=== PATIENT | male | born 1995 | race American Indian/Alaskan Native ===

== ENCOUNTER 2017-07-20 10:41 | Emergency (ER) | payer SELFPAY ==
[2017-07-20 11:49] VITALS: BP 124/72
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
== END 2017-07-20 14:44 | disposition home or self-care (01) ==
LOC: ED 10:41
DX: L73.9 Follicular disorder, unspecified (principal); R21 Rash and other nonspecific skin eruption; F17.200 Nicotine dependence, unspecified, uncomplicated; F12.10 Cannabis abuse, uncomplicated
CPT/HCPCS: 99282

== ENCOUNTER 2019-10-06 07:45 | Emergency (ER) | payer OTHER ==
[2019-10-06] MEDS ORDERED: TETANUS,DIPH,PERTUSS(ACELL) VACCINE 0.5 ML SYRINGE IM ONE (08:18)
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
[2019-10-06 09:24] LABS: Basophils % (Auto) 0.3 % (0.0-1.8); Eosinophils % (Auto) 0.5 % (0.0-4.3); Hematocrit 43.3 % (35.5-45.6); Hemoglobin 14.6 gm/dl (11.8-15.2); Lymphocytes # (Auto) 0.9 K/mm3 (1.2-5.4); Lymphocytes % (Auto) 15.7 % (13.4-35.0); Mean Corpuscular HGB Conc 34 % (32-34); Mean Corpuscular Volume 92 fl (84-94); Monocytes # (Auto) 0.5 K/mm3 (0.0-0.8); Monocytes % (Auto) 9.4 % (0.0-7.3); Platelet Count 175 K/mm3 (140-440); Red Blood Count 4.69 M/mm3 (3.65-5.03)
[2019-10-06 09:44] LABS: BUN/Creatinine Ratio 9; Blood Urea Nitrogen 10 mg/dL (9-20); Calcium 9.8 mg/dL (8.4-10.2); Hemolysis Index 6
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
[2019-10-06] MEDS ORDERED: ONDANSETRON 4 MG/2 ML INJ IV ONE (10:00)
[2019-10-06] MEDS ORDERED: fentaNYL 100 MCG/2 ML INJ IV ONE (10:00)
[2019-10-06] MEDS ORDERED: LIDOCAINE 1%/EPINEPHRINE 1:100,000 VIAL (20 ML) INFILTRATI ONE (10:07)
[2019-10-06] MEDS ORDERED: SODIUM CHLORIDE 0.9% IRR 500 ML BOTTLE IR ONE (10:07)
[2019-10-06] MEDS ORDERED: LIDOCAINE (1%) 10 MG/1 ML VIAL 20 ML MDV INFILTRATI ONE (10:07)
[2019-10-06] MEDS ORDERED: SODIUM CHLORIDE IRRI 500 ML 500 ML IR ONE (10:08)
[2019-10-06] MEDS: ceFAZolin/NS 1 GM/50 ML 1 GM/50 ML BAG IV ONE ×2 (11:16→11:17)
[2019-10-06 12:02] VITALS: BP 121/47
== END 2019-10-06 12:24 | disposition home or self-care (01) ==
LOC: ED 07:45
DX: S31.030A Puncture wound without foreign body of lower back and pelvis without penetration into retroperitoneum, initial encounter (principal); F17.200 Nicotine dependence, unspecified, uncomplicated; F12.10 Cannabis abuse, uncomplicated; Z79.1 Long term (current) use of non-steroidal anti-inflammatories (NSAID); Z79.899 Other long term (current) drug therapy; W03.XXXA Other fall on same level due to collision with another person, initial encounter; Y93.01 Activity, walking, marching and hiking; Y92.89 Other specified places as the place of occurrence of the external cause; Y99.8 Other external cause status
CPT/HCPCS: 12001; 36415; 71250; 80048; 85025; 90471; 90715; 96374; 96375; 99284; J0690; J2405; J3010

== ENCOUNTER 2019-10-12 13:22 | Emergency (ER) | payer SELFPAY ==
[2019-10-12 13:27] VITALS: BP 130/64
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
== END 2019-10-12 14:50 | disposition home or self-care (01) ==
LOC: ED 13:22
DX: S21.212D Laceration without foreign body of left back wall of thorax without penetration into thoracic cavity, subsequent encounter (principal); F17.200 Nicotine dependence, unspecified, uncomplicated; F10.10 Alcohol abuse, uncomplicated; F12.10 Cannabis abuse, uncomplicated; Z79.899 Other long term (current) drug therapy; X58.XXXD Exposure to other specified factors, subsequent encounter

== ENCOUNTER 2020-06-07 13:07 | Emergency (ER) | payer SELFPAY ==
[2020-06-07 14:02] VITALS: BP 108/70
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
== END 2020-06-07 14:40 | disposition home or self-care (01) ==
LOC: ED 13:07
DX: M54.30 Sciatica, unspecified side (principal); F17.200 Nicotine dependence, unspecified, uncomplicated; F12.10 Cannabis abuse, uncomplicated; Z79.899 Other long term (current) drug therapy
CPT/HCPCS: 99281

== ENCOUNTER 2020-08-10 13:55 | Emergency (ER) | payer OTHER ==
[2020-08-10 14:25] VITALS: BP 117/75
[2020-08-10] MEDS ORDERED: IBUPROFEN 600 MG TAB PO ONE (15:27)
--- NOTE | 2020-08-10 16:04 | Emergency Department Report ---
ED Upper Extremity Inj HPI - General Chief Complaint: Extremity Problem,Nontraumatic Stated Complaint: RT ARM/PLASMA DONATED Time Seen by Provider: 08/10/20 15:26 Source: patient Mode of arrival: Ambulatory Limitations: No Limitations - History of Present Illness Initial Comments: 24-year-old -[place] male presents to the emergency room feeling like his right arm swelling and had some pain. Patient states that he gave him plasma 3 days ago but did not stay on the machine very long and did not complete a whole bag when he started experiencing some pain. Patient comes in now concern for swelling and pain to his right upper arm. Patient is taken no pain medications. Patient denies any numbness or tingling to his fingers inability to bend or straighten out his arm. Patient denies any fever denies any redness denies any chills or weaknesses. Complaint: Injury to:: right Onset/Timin -: days(s) Other Extremity Injury: Arm: Right Severity scale (0 -10): 4 Improves With: none Worsens With: none Associated Symptoms: denies other symptoms - Related Data Previous Rx's Medication Instructions Recorded Last Taken Type Permethrin 5% [Acticin 5% CREAM] 1 applicatio TP ONCE #1 tube 07/20/17 Unknown Rx Sulfamethoxazole/Trimethoprim 1 each PO BID #14 tablet 07/20/17 Unknown Rx [Bactrim DS TAB] hydrOXYzine PAMOATE [Vistaril] 25 mg PO Q6HR PRN #12 capsule 07/20/17 Unknown Rx HYDROcodone/APAP 5-325 [[place] 1 - 2 each PO Q6HR PRN #14 tablet 10/06/19 Unknown Rx 5/325] Ibuprofen [Motrin 800 MG tab] 800 mg PO Q8HR PRN #20 tablet 10/06/19 Unknown Rx cephALEXin [Keflex] 500 mg PO Q6HR #28 capsule 10/06/19 Unknown Rx Cyclobenzaprine [Flexeril] 10 mg PO TID PRN #10 tablet 06/07/20 Unknown Rx Ibuprofen [Motrin] 800 mg PO Q8HR PRN #30 tablet 06/07/20 Unknown Rx predniSONE [Deltasone] 20 mg PO DAILY #5 tablet 06/07/20 Unknown Rx Ibuprofen [Motrin 600 MG tab] 600 mg PO Q8H PRN #15 tablet 08/10/20 Unknown Rx Allergies Allergy/AdvReac Type Severity Reaction Status Date / Time No Known Allergies Allergy Verified 06/07/20 14:03 ED Review of Systems ROS: Stated complaint: RT ARM/PLASMA DONATED Other details as noted in HPI Comment: All other systems reviewed and negative ED Past Medical Hx - Past Medical History Previous Medical History?: No Additional medical history: concussion due to head injury - Surgical History Past Surgical History?: No - Social History Smoking Status: Current Every Day Smoker Substance Use Type: Alcohol, Marijuana - Medications Home Medications: Home Medications Medication Instructions Recorded Confirmed Last Taken Type Permethrin 5% [Acticin 5% CREAM] 1 applicatio TP ONCE #1 tube 07/20/17 Unknown Rx Sulfamethoxazole/Trimethoprim 1 each PO BID #14 tablet 07/20/17 Unknown Rx [Bactrim DS TAB] hydrOXYzine PAMOATE [Vistaril] 25 mg PO Q6HR PRN #12 capsule 07/20/17 Unknown Rx HYDROcodone/APAP 5-325 [[place] 1 - 2 each PO Q6HR PRN #14 tablet 10/06/19 Unknown Rx 5/325] Ibuprofen [Motrin 800 MG tab] 800 mg PO Q8HR PRN #20 tablet 10/06/19 Unknown Rx cephALEXin [Keflex] 500 mg PO Q6HR #28 capsule 10/06/19 Unknown Rx Cyclobenzaprine [Flexeril] 10 mg PO TID PRN #10 tablet 06/07/20 Unknown Rx Ibuprofen [Motrin] 800 mg PO Q8HR PRN #30 tablet 06/07/20 Unknown Rx predniSONE [Deltasone] 20 mg PO DAILY #5 tablet 06/07/20 Unknown Rx Ibuprofen [Motrin 600 MG tab] 600 mg PO Q8H PRN #15 tablet 08/10/20 Unknown Rx ED Physical Exam - General Limitations: No Limitations General appearance: alert, in no apparent distress - Head Head exam: Present: atraumatic, normocephalic - Eye Eye exam: Present: normal appearance - ENT ENT exam: Present: mucous membranes moist - Neck Neck exam: Present: normal inspection, full ROM. Absent: tenderness - Respiratory Respiratory exam: Present: normal lung sounds bilaterally. Absent: respiratory distress - Cardiovascular Cardiovascular Exam: Present: regular rate, normal rhythm. Absent: systolic murmur, diastolic murmur, rubs, gallop - Expanded Upper Extremity Exam Right Shoulder Exam: Present: normal inspection, full ROM. Absent: tenderness, swelling Upper Arm exam: Present: normal inspection, full ROM, tenderness. Absent: swelling Elbow exam: Present: normal inspection, full ROM. Absent: tenderness, swelling Forearm Wrist exam: Present: normal inspection, full ROM. Absent: tenderness, swelling Neuro motor exam: Present: thumb adduction intact, fingers 2-5 abduction intact Neurosensory exam: Present: 2-point discrimination Vascular: Present: normal capillary refill - Neurological Exam Neurological exam: Present: alert, oriented X3 - Psychiatric Psychiatric exam: Present: normal affect, normal mood - Skin Skin exam: Present: warm, dry, intact, normal color. Absent: rash ED Course Vital Signs 08/10/20 08/10/20 14:25 17:16 Temperature 98.5 F Pulse Rate 71 Respiratory 16 18 Rate Blood Pressure 117/75 [Right] O2 Sat by Pulse 99 Oximetry ED Medical Decision Making - Medical Decision Making 24-year-old -[place] male presents to the emergency room feeling like his right arm swelling and had some pain. Patient states that he gave him plasma 3 days ago but did not stay on the machine very long and did not complete a whole bag when he started experiencing some pain. Patient comes in now concern for swelling and pain to his right upper arm. Patient is taken no pain medications. Patient denies any numbness or tingling to his fingers inability to bend or straighten out his arm. Patient denies any fever denies any redness denies any chills or weaknesses. Patient was given an ibuprofen 600 mg p.o. Doppler ordered for right upper extremity which resulted as negative for any DVTs. Patient be sent home with a request to take ibuprofen for pain management. Critical care attestation.: If time is entered above; I have spent that time in minutes in the direct care of this critically ill patient, excluding procedure time. ED Disposition Clinical Impression: Right upper limb pain Disposition: DC-01 TO HOME OR SELFCARE Is pt being admited?: No Does the pt Need Aspirin: No Condition: Stable Additional Instructions: Ultrasounds negative for any DVT/Clot. You can take Tylenol or ibuprofen for pain management. Warm compresses. Follow-up with your primary care provider. Prescriptions: Ibuprofen [Motrin 600 MG tab] 600 mg PO Q8H PRN #15 tablet PRN Reason: Pain Referrals: [facility] [Provider Group] - 3-5 Days [facility]ARE,MD [Primary Care Provider] - 3-5 Days Forms: Work/School Release Form(ED)
--- NOTE | 2020-08-10 16:18 | Vascular Lab Report ---
Right upper extremity venous Ultrasound HISTORY: Right upper arm tenderness and swelling s/p plasma. TECHNIQUE: Grayscale and color imaging performed. COMPARISON: None FINDINGS: No thrombus identified from the level of the internal jugular vein through the subclavian, axillary, brachial, basilic, radial, and ulnar veins. IMPRESSION: Negative for DVT. Signer Name: Liam Hinds MD Signed: 08/10/2020 4:14 PM Workstation Name: [id number]
== END 2020-08-10 17:20 | disposition home or self-care (01) ==
LOC: ED 13:55
DX: S49.91XA Unspecified injury of right shoulder and upper arm, initial encounter (principal); F17.200 Nicotine dependence, unspecified, uncomplicated; F12.10 Cannabis abuse, uncomplicated; Z79.1 Long term (current) use of non-steroidal anti-inflammatories (NSAID); Z79.899 Other long term (current) drug therapy; X58.XXXA Exposure to other specified factors, initial encounter; Y93.89 Activity, other specified; Y92.89 Other specified places as the place of occurrence of the external cause; Y99.8 Other external cause status